=== PATIENT | female | born 1990 ===

== ENCOUNTER 2017-10-10 19:32 | Emergency (ER) | payer MEDICAID ==
[2017-10-10 19:32] VITALS: BMI 29.1
--- NOTE | 2017-10-10 21:45 | ED PDOC ---
HPI: Abdomen Time Seen by Provider: 10/10/17 20:59 Chief Complaint (Nursing): Abdominal Pain Chief Complaint (Provider): Abdominal Pain History Per: Patient History/Exam Limitations: no limitations Onset/Duration Of Symptoms: Days (x2) Additional Complaint(s): Patient is a 27 y/o female who complains of abdominal pain described as a sharp intermittent pelvic pain, associated with nausea vomiting and light headedness for the past x2 days. Patient reports that the pain of symptoms have worsened and are more intense today Otherwise: (-) diarrhea, (-) fever, (-) melena, (-) hematochezia (-) urinary symptoms, (-) back pain, (-) vaginal bleeding or discharge. Has no history of prior abdominal surgery. Her last normal menstrual period was 07/17/17 and describes her menses as irregular. Past Medical History Reviewed: Historical Data, Nursing Documentation, Vital Signs Vital Signs: Last Vital Signs Temp 98.2 F 10/11/17 00:31 Pulse 81 10/11/17 00:31 Resp 16 10/11/17 00:31 BP 124/79 10/11/17 00:31 Pulse Ox 98 10/11/17 02:35 - Medical History PMH: Asthma - Family History Family History: States: Unknown Family Hx - Immunization History Hx Tetanus Toxoid Vaccination: No Hx Influenza Vaccination: No Hx Pneumococcal Vaccination: No - Home Medications Home Medications: Ambulatory Orders Medication Instructions Recorded Nitrofurantoin Macrocrystals 1 cap PO BID #14 cap 08/25/17 [Macrobid] Metoclopramide HCl [Reglan] 10 mg PO QID PRN #20 tablet 10/11/17 Nitrofurantoin Macrocrystals 100 mg PO BID #20 cap 10/11/17 [Macrobid] - Allergies Allergies/Adverse Reactions: Allergies Allergy/AdvReac Type Severity Reaction Status Date / Time morphine Allergy Severe RASH Verified 08/25/17 14:53 Review of Systems ROS Statement: Except As Marked, All Systems Reviewed And Found Negative Constitutional: Negative for: Fever Cardiovascular: Positive for: Light Headedness Gastrointestinal: Positive for: Nausea, Vomiting, Abdominal Pain. Negative for : Diarrhea Genitourinary Female: Negative for: Dysuria, Frequency, Incontinence, Vaginal Discharge, Vaginal Bleeding Musculoskeletal: Negative for: Back Pain Physical Exam - Reviewed Nursing Documentation Reviewed: Yes Vital Signs Reviewed: Yes - Physical Exam Comments: GENERAL APPEARANCE: Patient is awake, alert, oriented x 3, in (-) painful distress. SKIN: Warm, dry; (-) cyanosis. EYES: (-) conjunctival pallor, (-) scleral icterus. ENMT: Mucous membranes moist. NECK: (-) tenderness, (-) stiffness, (-) lymphadenopathy. CHEST AND RESPIRATORY: (-) rales, (-) rhonchi, (-) wheezes; breath sounds equal bilaterally. HEART AND CARDIOVASCULAR: (-) irregularity; (-) murmur, (-) gallop. ABDOMEN AND GI: (-) distention. Bowel sounds active; (-) tenderness, (-) guarding, (-) rebound, (-) palpable masses, (-) CVA tenderness. EXTREMITIES: (-) deformity, (-) edema, (+) distal pulses. NEURO AND PSYCH: Mental status as above; (-) focal findings. - Laboratory Results Result Diagrams: 10/10/17 22:30 10/10/17 22:30 - ECG O2 Sat by Pulse Oximetry: 98 (RA) Pulse Ox Interpretation: Normal Medical Decision Making Medical Decision Making: Time: 21:03 Impression: Abdominal/pelvic pain Initial Plan: --Labs --Reevaluation Uhcg : (+) Udip : +small leuks Labs reviewed : beta quant 19,502 US TV : FINDINGS: Gestation: A gestational sac is present. The mean gestational sac diameter is 1.13 cm. A yolk sac is present measuring 3 mm in diameter. A pole is present with crown-rump length of 0.3 cm. This corresponds to a gestational age of 5 weeks 6 days. This corresponds to an estimated delivery date of 06/08/2018. A heart rate of 100 beats per minute is documented by M-mode imaging. Placenta/amniotic fluid: Cannot be adequately evaluated due to the early gestational age. Uterus/cervix: The cervix is long and closed measuring 3.9 cm in length. The uterus measures 7.8 cm x 3.2 cm in sagittal dimension. No myometrial mass. Ovaries: The right ovary is normal in size and echotexture measuring 2.5 cm x 1.9 cm x 2.0 cm. Normal color Doppler flow and spectral Doppler waveform within the right ovary. The left ovary is normal in size and echotexture measuring 2.5 cm x 1.5 cm x 1.8 cm. Normal color Doppler flow and spectral Doppler waveform within the left ovary. No mass. Free fluid: No free fluid. IMPRESSION: 1. Single, living, intrauterine . Estimated gestational age of 5 weeks 6 days based on crown-rump length. This corresponds to an estimated delivery date of 06/08/2018 , and differs from established clinical dating by 6 weeks 4 days. 2. heart rate at the lower limit of normal (100 beats per minute). Recommend close clinical surveillance and close attention on followup imaging. Dictated and Authenticated by: Addy Johnson DO 10/10/2017 11:36 PM Eastern Time ([place] & [place]) On re-evaluation, patient reports of nausea, denies any abdominal pain or vaginal bleeding. On exam, patient remains AAOx3, in no acute distress. Abdomen soft, non-tender. Diagnostic results d/w the patient in great detail. Diagnosis of UTI, d/w the patient. Based on history, exam and diagnostic results, plan will be for outpatient follow up. Patient instructed to follow-up with rn wellness in 1-2 days without fail. Advised to take medication as prescribed and advised to start taking otc vitamins daily. Return to the emergency room at any time for any new or worsening symptoms. Patient states she fully agrees with and understands discharge instructions. States that she agrees with the plan and disposition. Verbalized and repeated discharge instructions and plan. I have given the patient opportunity to ask any additional questions. Scribe Attestation: Documented by Dane Ferguson, acting as a scribe for Toyin Austin PA-C Provider Scribe Attestation: All medical record entries made by the Scribe were at my direction and personally dictated by me. I have reviewed the chart and agree that the record accurately reflects my personal performance of the history, physical exam, medical decision making, and the department course for this patient. I have also personally directed, reviewed, and agree with the discharge instructions and disposition. Disposition - Clinical Impression Clinical Impression: Abdominal pain during , Urinary tract infection - Patient ED Disposition Is Patient to be Admitted: No Counseled Patient/Family Regarding: Studies Performed, Diagnosis, Need For Followup, Rx Given - Disposition Referrals: [facility] [Outside] Jean Holcomb MD [Staff Provider] - Disposition: Routine/Home Disposition Time: 00:00 Condition: STABLE Additional Instructions: Thank you for letting us take care of you today. You were treated for UTI, , abdominal pain. The emergency medical care you received today was directed towards the acute presenting symptoms. If you were prescribed any medication, please fill it and give as directed. It may take several days for your symptoms to resolve. Return to the Emergency Department at any time if symptoms worsen, do not improve, or if any other problems arise. Please contact your doctor in 2 days for re-evaluation and follow up / or call one of the physicians/clinics you have been referred to that are listed on the Patient Visit Information form that is included in your discharge packet. Bring any paperwork you were given at discharge with you along with any medications to your follow up visit. Our treatment cannot replace ongoing medical care by a primary care provider (PCP) outside of the emergency department. Thank you for allowing the [facility] team to be part of your care today. If you had a urine culture test done : We will call you regarding any positive results Prescriptions: Metoclopramide HCl [Reglan] 10 mg PO QID PRN #20 tablet PRN Reason: Nausea/Vomiting Nitrofurantoin Macrocrystals [Macrobid] 100 mg PO BID #20 cap Instructions: Urinary Tract Infections in Adults, Acute Abdomen (Belly Pain) Forms: [employer] ([place]), [facility] ED School/Work Excuse
[2017-10-10 22:47] LABS: BASO # 0.1 K/uL (0.0-0.2); BASO % 0.6 % (0.0-2.0); EOS # 0.3 K/uL (0.0-0.7); EOS % 2.4 % (0.0-4.0); LYMPH # 3.1 K/uL (1.0-4.3); LYMPH % 26.5 % (20.0-40.0); MEAN CELL VOLUME 91.6 fl (81.0-99.0); MEAN CORPUSCULAR HEMOGLOBIN 31.7 pg (27.0-31.0); MEAN CORPUSCULAR HGB CONC 34.6 g/dL (33.0-37.0); MEAN PLATELET VOLUME 8.6 fl (7.2-11.7); MONO % 8.3 % (0.0-10.0); NEUT # 7.3 K/uL (1.8-7.0); NEUT % 62.2 % (50.0-75.0); RBC 4.1 Mil/uL (3.80-5.20); RED CELL DISTRIBUTION WIDTH 13.1 % (11.5-14.5); WHITE BLOOD COUNT 11.7 K/uL (4.8-10.8)
[2017-10-10 22:59] LABS: BLOOD UREA NITROGEN 12 mg/dl (7-17); GFR AFRICAN-AMERICAN > 60; GFR NON-AFRICAN AMERICAN > 60
[2017-10-11 00:32] VITALS: BP 124/79; PULSE 81; RESP 16; TEMP 98.2
[2017-10-11 02:35] VITALS: O2SAT 98
--- NOTE | 2017-10-11 09:35 | US ---
Date of service: 10/10/2017 PROCEDURE: OB Pelvic Ultrasound HISTORY: pelvic pain, LMP: 07/17/2017 compatible with estimated gestational age of 12 weeks, 1 day COMPARISON: None available. FINDINGS: UTERUS: Gestational sac: Single intrauterine gestation. Measures 1.1 cm compatible with estimated gestational age of 5 weeks, 2 days. Yolk sac: Measures 0.3 cm. pole: [place]-rump length measures 0.3 cm compatible with estimated gestational age of 5 weeks, 6 days. Heart rate: 100 bpm. age (Ultrasound estimated): 5 weeks, 4 days [place]-gestational hemorrhage: None. Date of delivery (Ultrasound estimated) : 06/08/2018 Uterus measures 7.8 x 3.2 cm. Normal in size and appearance. CERVIX: Measures 3.9 cm. Long and closed. No cervical abnormality seen. RIGHT OVARY: Measures 2.5 x 1.9 x 2.0 cm. No mass lesion. Normal flow. LEFT OVARY: Measures 2.5 x 1.5 x 1.8 cm. No solid mass. Normal flow. FREE FLUID: None. OTHER FINDINGS: None. IMPRESSION: Single live intrauterine gestation with average ultrasound age of 5 weeks, 4 days. This is discordant with the estimated gestational age calculated by LMP. heart rate is at the lower limits of normal. Close clinical follow-up with serial pelvic sonography and serum beta HCG levels recommended.
== END 2017-10-11 00:32 | disposition home or self-care (01) ==
LOC: H.ER 19:32
DX: O23.41 Unspecified infection of urinary tract in pregnancy, first trimester (principal); Z3A.01 Less than 8 weeks gestation of pregnancy